=== PATIENT | male | born 1955 | race Hispanic/Latino ===

== ENCOUNTER 2018-11-27 22:45 | Inpatient (IN) | payer OTHER ==
[2018-11-28] MEDS ORDERED: Morphine 4 MG/ML VIAL SLOW IVP PRN (03:47)
[2018-11-28 03:57] VITALS: BMI 29.4
[2018-11-28] MEDS ORDERED: Ondansetron PF 4 MG/2 ML Vial IVP PRN (07:33)
[2018-11-28] MEDS ORDERED: Dextrose 50% Abboject 50 ML SYRINGE SLOW IVP PRN (07:33)
[2018-11-28] MEDS ORDERED: HumaLOG 300 UNITS/3 ML VIAL SC PRN ×2 (07:33)
[2018-11-28] MEDS ORDERED: hydrALAZINE 20 MG/ML VIAL SLOW IVP PRN (07:33)
[2018-11-28] MEDS ORDERED: Promethazine 25 MG TAB PO PRN (07:33)
[2018-11-28] MEDS ORDERED: Dextrose 5% in Water 1,000 ML IV PRN (07:33)
[2018-11-28] MEDS ORDERED: Acetaminophen 325 MG TAB PO PRN (07:33)
--- NOTE | 2018-11-28 09:36 | HP ---
CHIEF COMPLAINT: Abdominal pain. HISTORY OF PRESENT ILLNESS: Mr. Ferreira is a pleasant 63-year-old gentleman, who is currently incarcerated. He has a history of hypertension, diabetes, and elevated cholesterol. He says that about 2 to 3 months ago, he started noticing some abdominal pain primarily on his right side, and he says that he started noticing that he would get some bloating every time he ate. He also says that this began to progress to the point where he was vomiting and getting nauseated after most everything he ate. He started to get extremely weak and says that in the last few months, he has lost over 30 pounds. He denies having any hematemesis or hematochezia. He does admit that because he has been so weak, he has been short of breath primarily when he moves around and does things, but denies any chest pain and denies shortness of breath at rest. He also noted some edema in his ankles. As a result of this, he was sent to the emergency room, where a CT scan of the abdomen was obtained and it revealed a mass in the liver as well as an elevation of his D-dimer and he is being admitted for further evaluation. The patient denies any fevers or chills, or any other symptoms. REVIEW OF SYSTEMS: CONSTITUTIONAL: The patient denies any fevers, no chills or night sweats, but has had a 30-pound weight loss. HEENT: He denies any headaches. No dizziness. No visual changes. No sore throat, rhinorrhea, or neck pain. No adenopathy. PULMONARY: No hemoptysis. No cough. No wheezing. CARDIOVASCULAR: He denies any chest pain. No shortness of breath. No PND. No orthopnea. GASTROINTESTINAL: As per history of present illness. GENITOURINARY: No urinary frequency or hematuria. No hesitancy. NEUROLOGIC: No focal weakness or numbness. No seizures. MUSCULOSKELETAL: No muscle pains, weakness, or joint pains. PSYCHIATRIC: No symptoms of anxiety or depression. SKIN AND INTEGUMENT: No skin changes. No rash. PAST MEDICAL HISTORY: Significant for hypertension, diabetes mellitus, hypercholesterolemia, hypothyroidism, prostate cancer, and kidney cancer. PAST SURGICAL HISTORY: He has had right ankle surgery. He says he had some type of stomach surgery, an ablation on his kidney prior to being incarcerated and he did undergo 2 months of radiation for his prostate cancer. ALLERGIES: NO KNOWN DRUG ALLERGIES. SOCIAL HISTORY: He is , has 3 children. He admits to smoking a pack a day for 40 years and also history of heavy drinking for 30 years, but has not drank or smoke in the 5 years. FAMILY HISTORY: Negative for any heritable diseases. MEDICATIONS: Include 1. Terazosin 5 mg at bedtime. 2. Metformin 1000 mg twice daily. 3. Lisinopril 20 mg daily. 4. Levothyroxine 0.1 mg daily. 5. Phenergan p.r.n. 6. Simvastatin, he is unsure of the dose. 7. Prilosec 20 mg twice daily. 8. Tums p.r.n. PHYSICAL EXAMINATION: GENERAL: He is alert and oriented. He appears to be in no acute distress. VITAL SIGNS: Blood pressure is 121/58, heart rate 96, respiratory rate of 18, temperature is 98.4, and O2 saturations 96% on room air. HEENT: Pupils are equal, round, and reactive to light. He is normocephalic and atraumatic. He does have some conjunctival injection, but no maura icterus. Throat, there is no erythema, no exudates. NECK: No adenopathy. No bruits. LUNGS: Clear to auscultation. There is no wheezing, no rales, no rhonchi. CARDIOVASCULAR: He has a normal S1, S2. I do not appreciate an S3 or S4. No murmurs, clicks, or rubs. ABDOMEN: Obese, it is soft. He does have some mild mid abdominal tenderness and also into the right upper quadrant. I am not able to palpate a mass and the liver span percussed to be normal. There is no fluid wave or any flank dullness. EXTREMITIES: There is no clubbing, no cyanosis, no edema. There are no joint effusions. Good dorsalis pedis pulses. NEUROLOGIC: The patient is currently shackled, but grossly the neurological exam is negative. SKIN AND INTEGUMENT: No skin changes. No rash. LABORATORY DATA: The white blood cell count is 8.9, hemoglobin is 10.5, hematocrit is 34.2, and platelet count is 126. Sodium is 139, potassium is 5.2, chloride is 102, CO2 is 26, BUN of 15, creatinine is 0.96, glucose is 190. Urinalysis was essentially negative. Urine drug screen was negative. Also, the patient's D-dimer was 2.17. IMAGING STUDIES: He had a CT scan of the abdomen and pelvis. I do not have the official reading on this, but it was reported that there was a large metastatic mass in the liver. There are no pleural effusions. No evidence of ascites or any visible lung masses. ASSESSMENT: This is a 63-year-old gentleman, who presents with abdominal discomfort, nausea and vomiting as well as significant weight loss and radiographic evidence of a metastatic lesion in the liver. He will be admitted. We will consult Gastroenterology. In the meantime, we will order an alpha-fetoprotein and CEA. There was no evidence of significant ascites, and we will defer to GI regarding whether or not to order an abdominal ultrasound. 1. Elevated D-dimer and dyspnea. We will get a CT angio of the chest tomorrow so that it will be 24 hours since his last contrast study. 2. Diabetes mellitus. We will hold off on metformin; however, we will treat him with the sliding scale and potentially with a long-acting insulin if needed. 3. Hypertension. We will need to reconcile and restart his home medications as well as p.r.n. medicines. 4. Hypothyroidism. We will restart levothyroxine. He appears to be clinically euthyroid. 5. He will be placed on Deep venous thrombosis and gastrointestinal prophylaxis. Job ID: [id number]
[2018-11-28] MEDS: Lisinopril 20 MG TAB PO SCH (09:47)
[2018-11-28] MEDS: Levothyroxine Sodium 100 MCG TAB PO SCH (09:48)
[2018-11-28] MEDS: Atorvastatin Calcium 10 MG TAB PO SCH (09:48)
[2018-11-28] MEDS: HYDROcodone/Acetaminophen 5/325 mg Tablet PO PRN ×3 (09:48→20:18)
[2018-11-28] MEDS: Simethicone Chewable 80 MG TAB PO SCH ×3 (09:48→20:18)
[2018-11-28] MEDS: Enoxaparin Sodium 40 MG/0.4 ML SYRINGE SC SCH (09:49)
--- NOTE | 2018-11-28 14:49 | CON ---
DATE OF CONSULTATION: 11/28/2018 REQUESTING PHYSICIAN: Sawyer Rivers MD REASON FOR CONSULTATION: Metastatic liver disease. HISTORY OF PRESENT ILLNESS: Franklin Ferreira is a 63-year-old man, currently incarcerated, who was admitted to the hospital early this morning in transfer from [facility]. He has a history significant for some kind of renal malignancy or lesion, which was ablated elsewhere several years ago. He is unsure of the exact diagnosis of this. He also has a history of prostate cancer and underwent several weeks of radiation therapy in 2018, at [facility]. He says that this went well and that recent PSAs have all been satisfactory, and he has had close followup with Urology since then. He has no prior history of gastrointestinal illness or malignancy or any family history of GI malignancy. He has never undergone EGD that he is aware of. He does recall having undergone a colonoscopy probably 12 to 15 years ago elsewhere. A couple of months ago, he noticed the gradual onset of some right-sided abdominal pain and postprandial bloating. This progressed in frequency and intensity. He started having postprandial nausea with rare vomiting. He is having more frequent, but smaller bowel movements and a lot more gas from above and below. He has lost about 30 pounds over the past few months. He started having some dyspnea on exertion and mild ankle swelling. Upon presentation the other night, he had a CT of the abdomen and pelvis, and this unfortunately shows innumerable liver lesions, mostly measuring 1 to 3 cm, but one area is a conglomeration of lesions measuring up to 10 cm in size. There is a 2.5 cm left renal lesion, which is indeterminate. He has diverticulosis and stool in the colon. Otherwise, normal pancreas, spleen, stomach, adrenals, small bowel, and bladder. CEA is mildly elevated to 5.26, and AFP is pending. He is currently feeling okay. He had breakfast and lunch today and did fine with this. Oncology consultation is also pending. REVIEW OF SYSTEMS: Full review of systems including constitutional, head, eyes, ears, nose, throat, GI, , cardiovascular, respiratory, musculoskeletal, and neurologic systems is negative except as noted in the HPI. PAST MEDICAL HISTORY: Hypertension; hyperlipidemia; diabetes; hypothyroidism; kidney lesion, status post ablation several years ago; and prostate cancer, status post radiation in 2018, at [facility]. FAMILY HISTORY: His father had some kind of liver disease. No gastrointestinal malignancy. SOCIAL HISTORY: The patient used to smoke and drink heavily, but none for the past 5 to 6 years since he was incarcerated. ALLERGIES: NO KNOWN DRUG ALLERGIES. OUTPATIENT MEDICATIONS: 1. Terazosin. 2. Metformin. 3. Lisinopril. 4. Levothyroxine. 5. Phenergan. 6. Zocor. 7. Prilosec 20 mg b.i.d. PHYSICAL EXAMINATION: VITAL SIGNS: Temperature 99.1, pulse 116, blood pressure 124/61, 95% oxygen saturation on room air. GENERAL: A 63-year-old man, sitting up in bed comfortably, in no distress. SKIN: No jaundice. No rashes were palpable. He has multiple tattoos. HEENT: Eyes; no scleral icterus. Extraocular movements are intact. ENT; mucous membranes are moist. No oral lesions. LYMPH: No submandibular or supraclavicular lymphadenopathy. THYROID: Nontender to palpation. HEART: Regular rate and rhythm. LUNGS: Clear to auscultation bilaterally. ABDOMEN: Bowel sounds present. Soft. Nontender to palpation. EXTREMITIES: No peripheral edema. VESSELS: Radial pulses 2+ bilaterally. NEUROLOGIC: Cranial nerves 2 through 12 intact bilaterally. No focal deficits. LABORATORY STUDIES: WBC 8.9, hemoglobin 10.5, platelets 126, MCV 87.5. Sodium 139, potassium 5.2, BUN 15, creatinine 0.96, glucose 190. Troponin, negative. Total bilirubin 0.5, alkaline phosphatase 351, AST 70, ALT 27, albumin 2.9, lipase 7. BNP 149.7. Urinalysis, negative. Urine drug screen, negative. D-dimer 2.17. AFP is pending. CEA is elevated to 5.26. Troponin, negative. IMAGING STUDIES: Chest x-ray showed no acute processes. CT of the abdomen and pelvis demonstrated innumerable liver lesions measuring up to 10 cm. There are diverticulosis and stool in the colon. There is a 2.5 cm left renal lesion. Otherwise, normal-appearing pancreas, spleen, stomach, adrenals, small bowel, and bladder. ASSESSMENT AND PLAN: 1. Metastatic liver disease. 2. Elevated CEA. 3. History of prostate cancer, status post radiation in 2018. 4. History of renal lesion, status post treatment several years ago. I discussed with the patient today that his imaging is very concerning for metastatic liver disease. He does have some elevation in CEA as well as a prior history of other malignancies. Gastrointestinal primary is certainly on the differential. We can plan for EGD and colonoscopy this admission for further investigation. We will give him a clear liquid diet starting tomorrow. Plan for bowel preparation tomorrow evening and EGD and colonoscopy the following day. I understand he is going to be getting CT chest imaging in the meantime. Follow up Oncology recommendations. It may also be worthwhile to consider getting a formal Urology consultation. Thank you for the consultation. Please call anytime with questions or concerns. Job ID: [id number]
[2018-11-28] MEDS: Terazosin HCl 5 MG CAP PO SCH (20:18)
[2018-11-28] MEDS ORDERED: Prevnar 13-Val Conj/PF 0.5 ML SYRINGE IM ONE (21:00)
[2018-11-28] MEDS ORDERED: FLU VACC QS2019-20(6MOS UP)/PF 60 MCG/0.5 ML SYRINGE IM ONE (21:00)
[2018-11-29 05:30] LABS: #Eosinphils 0.1 thou/uL (0.0-0.7); #Lymphocytes 0.6 thou/uL (1.20-3.40); #Monocytes 0.9 thou/uL (0.11-0.59); #Neutrophils 6.8 thou/uL (1.40-6.50); %Eosinophils 1.1 % (0.0-10.0); %Lymphocytes 6.8 % (21.0-51.0); %Monocytes 10.2 % (0.0-10.0); %Neutrophils 81.8 % (42.0-75.0); Hemoglobin 10.6 g/dL (14.0-18.0); Mean Corpuscular HGB CONC 32.6 g/dL (32.0-36.0); Mean Corpuscular Hemoglobin 28.8 pg (27.0-31.0); Mean Corpuscular Volume 88.4 fL (78.0-98.0); Mean Platelet Volume 11.1 fL (7.4-10.4); Platelet Count 134 thou/uL (130-400); RBC Distribution Width 13.4 % (11.5-14.5); Red Blood Cell (RBC) Count 3.68 mill/uL (4.70-6.10); White Blood Cell (WBC) Count 8.3 thou/uL (4.8-10.8)
[2018-11-29 05:51] LABS: Anion Gap 12 mmol/L (10-20); BUN (Urea Nitrogen) 14 mg/dL (8.4-25.7); Calc. Creatinine Clearance 106 mL/min (70-130); Calcium 8.4 mg/dL (7.8-10.44); Carbon Dioxide 25 mmol/L (23-31); Chloride 103 mmol/L (98-107); Estimated GFR-MDRD 90; Glucose 131 mg/dL (80-115); Potassium 4.4 mmol/L (3.5-5.1); Sodium 136 mmol/L (136-145)
[2018-11-29] MEDS: HYDROcodone/Acetaminophen 5/325 mg Tablet PO PRN ×2 (05:51→11:00)
--- NOTE | 2018-11-29 09:57 | PRG ---
DATE OF SERVICE: 11/29/2018 SUBJECTIVE: Mr. Ferreira says he is doing fine. No significant abdominal discomfort. He had a good night and slept okay. He started clear liquids this morning. He did spike a low-grade fever this morning. OBJECTIVE: VITAL SIGNS: Temperature 99.7, pulse 106, blood pressure 136/78, 96% oxygen saturation on room air. GENERAL: No acute distress. HEART: Regular rate and rhythm. LUNGS: Clear to auscultation bilaterally. ABDOMEN: Bowel sounds present. Soft. Mild tenderness to palpation in the upper abdomen. No guarding or rebound tenderness. EXTREMITIES: No peripheral edema. LABORATORY STUDIES: Hemoglobin 10.6, WBC 8.3, platelets 134. Sodium 136, potassium 4.4, BUN 14, creatinine 0.86. AST came back elevated to 348.9. CEA is 5.26. ASSESSMENT AND PLAN: 1. Innumerable liver masses, most consistent with metastatic liver disease. 2. Elevated CEA. 3. Elevated AFP. 4. History of prostate cancer, status post radiation in 2018. 5. History of renal lesion, status post treatment several years ago. I note the patient has significant AFP elevation as well. He does not have any underlying history of known liver disease. We will check viral hepatitis serologies with tomorrow morning's labs. Imaging findings still seem more consistent with metastatic disease. We will stick with the plan for diagnostic EGD and colonoscopy tomorrow after bowel preparation this evening. The patient understands and desires to proceed. Job ID: [id number]
[2018-11-29] MEDS: Enoxaparin Sodium 40 MG/0.4 ML SYRINGE SC SCH (10:59)
[2018-11-29] MEDS: Simethicone Chewable 80 MG TAB PO SCH ×3 (10:59→21:07)
[2018-11-29] MEDS: Levothyroxine Sodium 100 MCG TAB PO SCH (11:00)
[2018-11-29] MEDS: Lisinopril 20 MG TAB PO SCH (11:00)
[2018-11-29] MEDS: Atorvastatin Calcium 10 MG TAB PO SCH (11:01)
[2018-11-29 12:47] LABS: HBCM Index 0.09 S/CO (0-0.79); HBSAg Index 0.39 S/CO (0-0.99); Hep A IgM AB Non-Reactive (NonReactive); Hep A IgM S/CO 0.39 S/CO (0-0.79); Hep B Surf Ag Non-Reactive S/CO (NonReactive); Hep C IgG Ab Non-Reactive (NonReactive); Hep C Index 0.17 S/CO (0-0.79); Hepatitis B Core IgM Abs Non-Reactive (NonReactive)
--- NOTE | 2018-11-29 12:53 | CT ---
CTA Angio Chest performed with intravenous contrast enhancement with 3-D reconstructions HISTORY: Shortness of breath. History of prostate cancer and right kidney ablation. COMPARISON: None. FINDINGS: The lungs are clear of any infiltrative process. No pleural effusions. No pulmonary nodules . No significant mediastinal or hilar lymphadenopathy. The thoracic aorta is normal in caliber. There i s poor pulmonary artery opacification obtained. I see no large central embolus but peripheral emboli are not excluded. Although this is only an arterial phase examination there are innumerable low-attenuation masses with in the liver highly suspicious for metastatic disease. IMPRESSION: 1. Inadequate study for evaluation for pulmonary embolus. No large central embolus is seen at periphe ral emboli are not excluded. 2. Diffuse liver metastatic disease.
[2018-11-29] MEDS ORDERED: Iopamidol 370 76% 100 ML VIAL ONE (13:44)
--- NOTE | 2018-11-29 15:33 | PDOC.HOSPP ---
- Subjective Encounter Date: 11/29/18 Encounter Time: 13:00 Subjective: Mr. Ferreira was seen today in follow-up of liver masses. He continues to have abdominal pain, which is relieved with Morphine. He says the nausea is better however. - Objective Vital Signs & Weight: Vital Signs (12 hours) Temp Pulse Resp BP Pulse Ox 11/29/18 11:00 98 F 96 18 151/73 H 99 11/29/18 07:23 99.7 F H 106 H 18 136/78 96 Weight Admit Weight 187 lb 12.8 oz Weight 187 lb 12.8 oz I&O: 11/28/18 11/29/18 11/30/18 06:59 06:59 06:59 Intake Total 240 1870 640 Balance 240 1870 640 Result Diagrams: 11/29/18 04:44 11/29/18 04:44 Additional Labs: Accuchecks 11/29/18 11/29/18 11/28/18 10:43 05:58 20:21 POC Glucose 150 H 125 H 154 H 11/28/18 17:05 POC Glucose 179 H Hospitalist ROS - Medication Medications: Active Medications Generic Name Dose Route Start Last Admin Trade Name Freq PRN Reason Stop Dose Admin Hydrocodone Bitart/Acetaminophen 1 tab 11/28/18 07:33 11/29/18 11:00 [place] 5/325 PO 1 tab Q4H PRN Administration Moderate Pain (4-6) Atorvastatin Calcium 10 mg 11/28/18 09:00 11/29/18 11:01 Lipitor PO 10 mg DAILY LIVIA Administration Enoxaparin Sodium 40 mg 11/28/18 09:00 11/29/18 10:59 Lovenox SC 40 mg 0900 LIVIA Administration Levothyroxine Sodium 100 mcg 11/28/18 09:00 11/29/18 11:00 Synthroid PO 100 mcg DAILY LIVIA Administration Lisinopril 20 mg 11/28/18 09:00 11/29/18 11:00 Zestril PO 20 mg DAILY LIVIA Administration Pantoprazole Sodium 40 mg 11/28/18 09:00 11/29/18 10:59 Protonix PO 40 mg DAILY LIVIA Administration Sertraline HCl 150 mg 11/28/18 21:00 11/28/18 20:18 Zoloft PO 150 mg QPM LIVIA Administration Simethicone 80 mg 11/28/18 09:00 10/07/19 10:59 Mylicon Chewable PO 80 mg TID LIVIA Administration Terazosin HCl 5 mg 11/28/18 21:00 11/28/18 20:18 Hytrin PO 5 mg HS LIVIA Administration - Exam Eye: PERRL, anicteric sclera Heart: RRR, no murmur, no gallops, no rubs, normal peripheral pulses Respiratory: CTAB, no wheezes, no rales, no ronchi, normal chest expansion, no tachypnea, normal percussion Gastrointestinal: soft, non-distended, normal bowel sounds, no palpable masses, no hepatomegaly, no splenomegaly, no guarding, tender to palpation (mild diffuse tenderness) Extremities: no cyanosis, no clubbing, no edema Psychiatric: normal affect, normal behavior, A&O x 3 Hosp A/P (1) Abdominal pain Code(s): R10.9 - UNSPECIFIED ABDOMINAL PAIN Status: Acute (2) Liver masses Code(s): R16.0 - HEPATOMEGALY, NOT ELSEWHERE CLASSIFIED Status: Chronic (3) Hypertension Code(s): I10 - ESSENTIAL (PRIMARY) HYPERTENSION Status: Chronic (4) Diabetes mellitus type 2 in nonobese Code(s): E11.9 - TYPE 2 DIABETES MELLITUS WITHOUT COMPLICATIONS Status: Chronic - Plan * Liver masses- likely metastatic disease from unknown primary- will check a PSA , and will await the findings from the EGD and Colonoscopy * Hepatitis panel was negative * Continue symptom relief * Dyspnea- will check a CTA to rule out PE * HTN-blood pressure is stable * DM- blood glucose is stable
[2018-11-29] MEDS ORDERED: GoLYTELY 4,000 ml Bottle PO SCH (17:00)
[2018-11-29] MEDS: Terazosin HCl 5 MG CAP PO SCH (21:07)
[2018-11-30] MEDS: Enoxaparin Sodium 40 MG/0.4 ML SYRINGE SC SCH (08:06)
[2018-11-30] MEDS: Levothyroxine Sodium 100 MCG TAB PO SCH (09:32)
[2018-11-30] MEDS: Atorvastatin Calcium 10 MG TAB PO SCH (09:32)
[2018-11-30] MEDS: Lisinopril 20 MG TAB PO SCH (09:33)
[2018-11-30] MEDS: Simethicone Chewable 80 MG TAB PO SCH ×3 (09:33→21:14)
[2018-11-30] MEDS: HYDROcodone/Acetaminophen 5/325 mg Tablet PO PRN ×2 (09:40→21:14)
[2018-11-30] MEDS ORDERED: PROPOFOL 200 MG/20 ML VIAL ONE (11:53)
--- NOTE | 2018-11-30 12:54 | PQF ---
ADELAIDE HILARIO TONI MD [phone] [facility] [id number] CLINICAL DOCUMENTATION IMPROVEMENT CLARIFICATION FORM: ICD-10 Updated PLEASE DO AN ADDENDUM TO THE PROGRESS NOTE WITH ANY DOCUMENTATION UPDATES OR ADDITIONS AND CARRY THROUGH TO DC SUMMARY. THANK YOU. Date: 11/30/2018 ATTN: DR. Osmany DEWEY Please exercise your independent, professional judgment in responding to the clarification form. Clinical indicators are provided on the bottom of this form for your review. Please check appropriate box(s): [X ] Protein Calorie Malnutrition: [ X ] Mild [ ] Moderate [ ] Severe [ ] Cachexia [ ] Other diagnosis [ ] Unable to determine In addition, please specify: Present on Admission (POA): [ X ] Yes [ ] No [ ] Unable to determine CLINICAL INDICATORS - SIGNS / SYMPTOMS / LABS 11/28 H&P (ZULEIMA) PRESENTS WITH ABDOMINAL DISCOMFORT, NAUSEA, VOMITING, WELL SIGNIFICANT WEIGHT LOSS AND RADIOGRAPHIC EVIDENCE OF A METASTATIC LESION IN THE LIVER. 11/29 DIETARY CONSULT: MALNUTRITION : EVIDENCED BY METASTATIC LIVER CANCER, 10.6 % WEIGHT LOSS IN 2-3 MONTHS, PATINET REPORT OF LIMITED PO INTAKE X 2-3 MONTHS, MEETING < 75% OF ESTIMATED NEEDS X 2-3 MONTHS SUGGESTIVE OF SEVERE MALNUTRITION IN THE CONTEXT OF CHRONIC ILLNESS. RISK: NAUSEA, VOMITING,SIGNIFICANT WEIGHT LOSS, LARGE METASTATIC MASS IN LIVER ( ZULEIMA/ H&P) 11/28 TREATMENTS: GI CONSULT (11/28) DIETARY CONSULT (11/29) -RD RECOMMENDS GLUCERNA SHAKES TID -ANTIEMETICS ORDERED PRN ( PHENERGAN/ZOFRAN) Moderate Malnutrition (in acute illness) Energy Intake: <75% of estimated energy requirement for > 7 days Weight Loss: 1-2%/1 week; 5%/ 1 month; 7.5%/3 months Other: mild body fat loss; mild muscle mass loss; mild fluid accumulation; Severe Malnutrition (in acute illness) Energy Intake: < 50% of estimated energy requirement for > 5 days Weight Loss: >1-2%/1 week; >5%/1 month; >7.5%/3 months Other: moderate body fat loss; moderate muscle mass loss; moderate- severe fluid accumulation; measurably reduced sinker winder strength Moderate Malnutrition (in chronic illness) Energy Intake: <75% of estimated energy requirement for >1 month Weight Loss: 5%/1 month; 7.5%/3 months; 10%/6 months; 20%/1 year Other: mild body fat loss; mild muscle mass loss; mild fluid accumulation Severe Malnutrition (in chronic illness) Energy Intake: <75% of estimated energy requirement for >1 month Weight Loss: >5%/1 month; >7.5%/3 months; >10%/6 months; >20%/1 year Other: severe body fat loss; severe muscle mass loss; severe fluid accumulation ; measurably reduced sinker winder strength THANK YOU! MALLIKA (This form is maintained as a part of the permanent medical record) 2014 [email or web address] All Rights Reserved BELA [email or web address] [phone] MTDD
--- NOTE | 2018-11-30 13:26 | OP ---
DATE OF PROCEDURE: 11/30/2018 PROCEDURE PERFORMED: Esophagogastroduodenoscopy and colonoscopy with snare polypectomy. PREOPERATIVE DIAGNOSIS: Metastatic disease to the liver of unknown origin and anemia. DESCRIPTION OF PROCEDURE: Informed consent was obtained from the patient. He was sedated with total intravenous anesthesia. The bite block was placed and the endoscope was advanced easily to the second portion of the duodenum and retroflexion was performed in the stomach. The esophagus was normal. The GE junction was normal. The stomach was normal including retroflexed views. The pylorus and first and second portions of the duodenum were normal. The patient was turned around. Rectal exam was performed and was normal. The colonoscope was advanced to the cecum, where the ileocecal valve and appendiceal orifice were clearly identified. The preparation quality was good. A 4 mm polyp was removed by cold snare polypectomy from the proximal ascending colon. A 6 mm polyp was removed from the transverse colon by snare cautery polypectomy. There was moderate diverticulosis throughout the transverse, descending, and sigmoid colon. 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 Retroflexed views in the rectum were otherwise unremarkable. IMPRESSION: 1. Normal esophagogastroduodenoscopy. 2. 4 mm ascending colon polyp. 3. 6 mm transverse colon polyp. 4. Diverticulosis throughout the transverse, descending, and sigmoid colon. 5. Moderate radiation proctitis. 6. No primary malignancy was identified by this exam. RECOMMENDATIONS: 1. Await histopathology. 2. Next step will be biopsy of the liver lesion. 3. Await oncology recommendations. 4. Dr. Wylie should be back tomorrow. Job ID: [id number]
--- NOTE | 2018-11-30 17:29 | PDOC.HOSPP ---
- Subjective Encounter Date: 11/30/18 Encounter Time: 14:00 Subjective: Mr. Ferreira was seen today in follow-up of metastatic disease to the liver. He does not have any new complaints. He continues to have some mild abdominal discomfort. - Objective Vital Signs & Weight: Vital Signs (12 hours) Temp Pulse Resp BP Pulse Ox 11/30/18 15:19 98.1 F 91 16 107/55 L 96 11/30/18 12:58 97.7 F 79 16 109/67 98 11/30/18 08:04 97.9 F 89 16 105/47 L 96 11/30/18 08:00 96 Weight Admit Weight 187 lb 12.8 oz Weight 187 lb 12.8 oz I&O: 11/29/18 11/30/18 12/01/18 06:59 06:59 06:59 Intake Total 1870 1710 Balance 1870 1710 Result Diagrams: 11/29/18 04:44 11/29/18 04:44 Additional Labs: Accuchecks 11/30/18 11/30/18 11/30/18 16:52 13:11 05:22 POC Glucose 147 H 90 107 11/29/18 20:03 POC Glucose 176 H Hospitalist ROS - Medication Medications: Active Medications Generic Name Dose Route Start Last Admin Trade Name Freq PRN Reason Stop Dose Admin Hydrocodone Bitart/Acetaminophen 1 tab 11/28/18 07:33 11/30/18 09:40 [place] 5/325 PO 1 tab Q4H PRN Administration Moderate Pain (4-6) Atorvastatin Calcium 10 mg 11/28/18 09:00 11/30/18 09:32 Lipitor PO 10 mg DAILY LIVIA Administration Levothyroxine Sodium 100 mcg 11/28/18 09:00 11/30/18 09:32 Synthroid PO 100 mcg DAILY LIVIA Administration Lisinopril 20 mg 11/28/18 09:00 11/30/18 09:33 Zestril PO Not Given DAILY LIVIA Pantoprazole Sodium 40 mg 11/28/18 09:00 11/30/18 09:33 Protonix PO 40 mg DAILY LIVIA Administration Sertraline HCl 150 mg 11/28/18 21:00 11/29/18 21:07 Zoloft PO 150 mg QPM LIVIA Administration Simethicone 80 mg 11/28/18 09:00 11/30/18 15:12 Mylicon Chewable PO 80 mg TID LIVIA Administration Sodium Chloride 10 ml 11/29/18 21:00 11/30/18 09:33 Flush - Normal Saline IVF 10 ml Q12HR LIVIA Administration Terazosin HCl 5 mg 11/28/18 21:00 11/29/18 21:07 Hytrin PO 5 mg HS LIVIA Administration - Exam Eye: PERRL, anicteric sclera Heart: RRR, no murmur, no gallops, no rubs, normal peripheral pulses Respiratory: CTAB, no wheezes, no rales, no ronchi, normal chest expansion, no tachypnea, normal percussion Gastrointestinal: soft, non-distended, normal bowel sounds, tender to palpation (+ diffuse tenderness no rebound or guarding) Extremities: no cyanosis, no clubbing, no edema Hosp A/P (1) Abdominal pain Code(s): R10.9 - UNSPECIFIED ABDOMINAL PAIN Status: Acute (2) Liver masses Code(s): R16.0 - HEPATOMEGALY, NOT ELSEWHERE CLASSIFIED Status: Chronic (3) Hypertension Code(s): I10 - ESSENTIAL (PRIMARY) HYPERTENSION Status: Chronic (4) Diabetes mellitus type 2 in nonobese Code(s): E11.9 - TYPE 2 DIABETES MELLITUS WITHOUT COMPLICATIONS Status: Chronic - Plan * Liver masses- likely metastatic disease from unknown primary- EGD and Colonoscopy findings were noted * Plan to to pursue CT guided biopsy of the liver * Continue symptom relief * Dyspnea- CTA was negative for any large central embolus * HTN-blood pressure is stable * DM- blood glucose is stable
[2018-11-30] MEDS: Terazosin HCl 5 MG CAP PO SCH (21:14)
[2018-12-01 07:37] LABS: INR-International Normal Ratio 1.1; Prothrombin Time 14.1 SEC (12.0-14.7)
[2018-12-01 07:38] LABS: PTT 41.8 SEC (22.9-36.1)
[2018-12-01] MEDS: Lisinopril 20 MG TAB PO SCH (08:49)
[2018-12-01] MEDS: Simethicone Chewable 80 MG TAB PO SCH ×3 (08:49→20:37)
[2018-12-01] MEDS: Levothyroxine Sodium 100 MCG TAB PO SCH (08:50)
[2018-12-01] MEDS: Atorvastatin Calcium 10 MG TAB PO SCH (08:50)
[2018-12-01] MEDS ORDERED: Sodium Bicarbonate 2.5 MEQ/5 ML VIAL ONE (09:55)
[2018-12-01] MEDS ORDERED: Midazolam HCl 2 mg/2 ml Vial ONE (09:56)
[2018-12-01] MEDS ORDERED: Fentanyl 100 MCG/2 ML VIAL ONE (09:56)
--- NOTE | 2018-12-01 11:14 | CT ---
CT Liver Perc Biopsy CLINICAL HISTORY: Liver masses, indeterminate etiology. PROCEDURE: Informed consent was obtained and the patient was escorted to the procedural suite, placed in supine position. The patient's skin was prepped and draped in a standard sterile fashion and topical anesthesia with buffered 1% lidocaine was performed. After a small skin incision was made, an 18-gaug e needle were advanced to the leading edge of the left hepatic lobe lesion of interest. After adequate placement was confirmed with CT fluoroscopic imaging, 3 subsequent core specimens were obta ined via percutaneous biopsy. These were confirmed with CT fluoroscopic imaging and the specimens were submitted to the pathologist for adequacy. Specimens were deemed adequate for interpretation. Th erefore, all devices were then removed from the patient. No unexpected procedural complications were present. The patient was monitored in radiology holding i n stable condition prior to discharge with family member. IMPRESSION: Technically successful percutaneous hepatic biopsy. Pathology results are pending.
--- NOTE | 2018-12-01 17:16 | PRG ---
DATE OF SERVICE: 12/01/2018 SUBJECTIVE: Mr. Ferreira is doing fine. He has been asymptomatic since EGD and colonoscopy yesterday. He underwent CT-guided liver mass biopsy today and this went well. He is not having any pain. He is tolerating his diet. Pathology is still pending. OBJECTIVE: VITAL SIGNS: Temperature 98.1, pulse 88, blood pressure 104/62, and 97% oxygen saturation on room air. GENERAL: In no acute distress. HEART: Regular rate and rhythm. LUNGS: Clear to auscultation bilaterally. ABDOMEN: Soft, nontender to palpation. EXTREMITIES: No peripheral edema. LABORATORY STUDIES: INR is 1.1. Glucose 141. Viral hepatitis serology panel is all negative. Recall AFP is elevated to 348.9. CEA is mildly elevated to 5.26. PSA is 0.88. ASSESSMENT/PLAN: 1. Metastatic liver disease. 2. Elevated AFP. 3. Elevated CEA. The patient's upper and lower endoscopy were unrevealing, negative for any primary malignancy. He had a couple of small colon adenomas, which were completely removed. Awaiting histopathology on liver mass biopsy. Once this is back, we would recommend oncology consultation if malignancy is confirmed. Please call back anytime if GI can be of further assistance. We will follow up the biopsy results with you. Job ID: [id number]
--- NOTE | 2018-12-01 17:56 | PDOC.HOSPP ---
- Subjective Encounter Date: 12/01/18 Encounter Time: 14:00 Subjective: Mr. Ferreira was seen today in follow-up of liver masses. He is back from CT- guided liver biopsy. He does not have any complaints. - Objective Vital Signs & Weight: Vital Signs (12 hours) Temp Pulse Resp BP BP BP Pulse Ox 12/01/18 15:56 98.1 F 88 16 104/62 97 12/01/18 11:00 98.3 F 97 16 105/58 L 94 L 12/01/18 08:49 117/61 12/01/18 07:40 98.1 F 90 18 117/61 94 L Weight Admit Weight 187 lb 12.8 oz Weight 187 lb 12.8 oz I&O: 11/30/18 12/01/18 12/02/18 06:59 06:59 06:59 Intake Total 1710 880 Balance 1710 880 Result Diagrams: 11/29/18 04:44 11/29/18 04:44 Additional Labs: Accuchecks 12/01/18 12/01/18 11/30/18 11:35 06:13 20:39 POC Glucose 141 H 100 193 H Hospitalist ROS - Medication Medications: Active Medications Generic Name Dose Route Start Last Admin Trade Name Freq PRN Reason Stop Dose Admin Hydrocodone Bitart/Acetaminophen 1 tab 11/28/18 07:33 11/30/18 21:14 [place] 5/325 PO 1 tab Q4H PRN Administration Moderate Pain (4-6) Atorvastatin Calcium 10 mg 11/28/18 09:00 12/01/18 08:50 Lipitor PO 10 mg DAILY LIVIA Administration Levothyroxine Sodium 100 mcg 11/28/18 09:00 12/01/18 08:50 Synthroid PO 100 mcg DAILY LIVIA Administration Lisinopril 20 mg 11/28/18 09:00 12/01/18 08:49 Zestril PO 20 mg DAILY LIVIA Administration Pantoprazole Sodium 40 mg 11/28/18 09:00 12/01/18 08:50 Protonix PO 40 mg DAILY LIVIA Administration Sertraline HCl 150 mg 11/28/18 21:00 11/30/18 21:13 Zoloft PO 150 mg QPM LIVIA Administration Simethicone 80 mg 11/28/18 09:00 12/01/18 16:01 Mylicon Chewable PO 80 mg TID LIVIA Administration Sodium Chloride 10 ml 11/29/18 21:00 12/01/18 08:50 Flush - Normal Saline IVF 10 ml Q12HR LIVIA Administration Terazosin HCl 5 mg 11/28/18 21:00 11/30/18 21:14 Hytrin PO 5 mg HS LIVIA Administration - Exam Eye: PERRL Heart: RRR, no murmur, no gallops, no rubs, normal peripheral pulses Respiratory: CTAB, no wheezes, no rales, no ronchi, normal chest expansion, no tachypnea, normal percussion Gastrointestinal: soft, non-distended, normal bowel sounds, no palpable masses, tender to palpation (+mild right upper quadrant tenderness no reound or guarding ) Extremities: no cyanosis, no clubbing, no edema Skin: normal turgor Hosp A/P (1) Abdominal pain Code(s): R10.9 - UNSPECIFIED ABDOMINAL PAIN Status: Acute (2) Liver masses Code(s): R16.0 - HEPATOMEGALY, NOT ELSEWHERE CLASSIFIED Status: Chronic (3) Hypertension Code(s): I10 - ESSENTIAL (PRIMARY) HYPERTENSION Status: Chronic (4) Diabetes mellitus type 2 in nonobese Code(s): E11.9 - TYPE 2 DIABETES MELLITUS WITHOUT COMPLICATIONS Status: Chronic - Plan * Liver masses- likely metastatic disease from unknown primary- Patient is back from CT-guided biopsy- await pathology * Continue symptom relief * HTN-blood pressure is stable * DM- blood glucose is stable
[2018-12-01] MEDS: Terazosin HCl 5 MG CAP PO SCH (20:36)
[2018-12-01] MEDS: HYDROcodone/Acetaminophen 5/325 mg Tablet PO PRN (20:37)
[2018-12-02] MEDS: Enoxaparin Sodium 40 MG/0.4 ML SYRINGE SC SCH (09:28)
[2018-12-02] MEDS: Levothyroxine Sodium 100 MCG TAB PO SCH (09:28)
[2018-12-02] MEDS: Lisinopril 20 MG TAB PO SCH (09:28)
[2018-12-02] MEDS: Simethicone Chewable 80 MG TAB PO SCH ×3 (09:28→21:13)
[2018-12-02] MEDS: Atorvastatin Calcium 10 MG TAB PO SCH (09:29)
[2018-12-02 09:30] LABS: #Eosinphils 0.1 thou/uL (0.0-0.7); #Lymphocytes 0.8 thou/uL (1.20-3.40); #Monocytes 0.9 thou/uL (0.11-0.59); #Neutrophils 6.4 thou/uL (1.40-6.50); %Basophils 0.1 % (0.0-1.0); %Eosinophils 0.9 % (0.0-10.0); %Lymphocytes 9.9 % (21.0-51.0); %Monocytes 11.1 % (0.0-10.0); Hemoglobin 10.6 g/dL (14.0-18.0); Mean Corpuscular HGB CONC 32.6 g/dL (32.0-36.0); Mean Corpuscular Hemoglobin 28.8 pg (27.0-31.0); Mean Corpuscular Volume 88.4 fL (78.0-98.0); Mean Platelet Volume 10.8 fL (7.4-10.4); Platelet Count 125 thou/uL (130-400); RBC Distribution Width 13.6 % (11.5-14.5); Red Blood Cell (RBC) Count 3.69 mill/uL (4.70-6.10); White Blood Cell (WBC) Count 8.2 thou/uL (4.8-10.8)
[2018-12-02] MEDS: HYDROcodone/Acetaminophen 5/325 mg Tablet PO PRN ×3 (09:32→21:13)
[2018-12-02 09:52] LABS: Anion Gap 11 mmol/L (10-20); BUN (Urea Nitrogen) 14 mg/dL (8.4-25.7); Calc. Creatinine Clearance 88 mL/min (70-130); Calcium 8.3 mg/dL (7.8-10.44); Carbon Dioxide 26 mmol/L (23-31); Chloride 103 mmol/L (98-107); Estimated GFR-MDRD 73; Glucose 236 mg/dL (80-115); Potassium 4.4 mmol/L (3.5-5.1); Sodium 136 mmol/L (136-145)
--- NOTE | 2018-12-02 14:54 | PDOC.HOSPP ---
- Subjective Encounter Date: 12/02/18 Encounter Time: 11:35 Subjective: Mr. Ferreira was seen today in follow-up of liver mass. He continues to have some mild right sided abdominal discomfort. He is eating well. No new complaints. - Objective Vital Signs & Weight: Vital Signs (12 hours) Temp Pulse Resp BP BP Pulse Ox 12/02/18 11:39 98.2 F 92 14 108/58 L 97 12/02/18 09:28 117/61 12/02/18 08:00 98.4 F 89 16 112/65 97 12/02/18 04:00 98.3 F 89 18 105/55 L 97 Weight Admit Weight 187 lb 12.8 oz Weight 187 lb 12.8 oz I&O: 12/01/18 12/02/18 12/03/18 06:59 06:59 06:59 Intake Total 880 480 Balance 880 480 Result Diagrams: 12/02/18 09:24 12/02/18 09:24 Additional Labs: Accuchecks 12/02/18 12/02/18 12/01/18 11:19 05:45 20:41 POC Glucose 140 H 101 189 H 12/01/18 16:54 POC Glucose 138 H Hospitalist ROS - Medication Medications: Active Medications Generic Name Dose Route Start Last Admin Trade Name Freq PRN Reason Stop Dose Admin Hydrocodone Bitart/Acetaminophen 1 tab 11/28/18 07:33 12/02/18 09:32 [place] 5/325 PO 1 tab Q4H PRN Administration Moderate Pain (4-6) Atorvastatin Calcium 10 mg 11/28/18 09:00 12/02/18 09:29 Lipitor PO 10 mg DAILY LIVIA Administration Enoxaparin Sodium 40 mg 12/02/18 09:00 12/02/18 09:28 Lovenox SC 40 mg 0900 LIVIA Administration Levothyroxine Sodium 100 mcg 11/28/18 09:00 12/02/18 09:28 Synthroid PO 100 mcg DAILY LIVIA Administration Lisinopril 20 mg 11/28/18 09:00 12/02/18 09:28 Zestril PO 20 mg DAILY LVIIA Administration Pantoprazole Sodium 40 mg 11/28/18 09:00 12/02/18 09:28 Protonix PO 40 mg DAILY LIVIA Administration Sertraline HCl 150 mg 11/28/18 21:00 12/01/18 20:36 Zoloft PO 150 mg QPM LIVIA Administration Simethicone 80 mg 11/28/18 09:00 12/02/18 14:18 Mylicon Chewable PO 80 mg TID LIVIA Administration Sodium Chloride 10 ml 11/29/18 21:00 12/02/18 09:29 Flush - Normal Saline IVF 10 ml Q12HR LIVIA Administration Sodium Chloride 10 ml 11/29/18 09:06 12/02/18 09:28 Flush - Normal Saline IVF 10 ml PRN PRN Administration Saline Flush Terazosin HCl 5 mg 11/28/18 21:00 12/01/18 20:36 Hytrin PO 5 mg HS LIVIA Administration - Exam Eye: PERRL, anicteric sclera Heart: RRR, no murmur, no gallops, no rubs, normal peripheral pulses Respiratory: CTAB, no wheezes, no rales, no ronchi, normal chest expansion, no tachypnea, normal percussion Gastrointestinal: soft, non-distended, normal bowel sounds, no palpable masses, no hepatomegaly, no splenomegaly, no bruit, tender to palpation (Mild right sided tenderness, no rebound or guarding) Extremities: no cyanosis, no clubbing, no edema Hosp A/P (1) Abdominal pain Code(s): R10.9 - UNSPECIFIED ABDOMINAL PAIN Status: Acute (2) Liver masses Code(s): R16.0 - HEPATOMEGALY, NOT ELSEWHERE CLASSIFIED Status: Chronic (3) Hypertension Code(s): I10 - ESSENTIAL (PRIMARY) HYPERTENSION Status: Chronic (4) Diabetes mellitus type 2 in nonobese Code(s): E11.9 - TYPE 2 DIABETES MELLITUS WITHOUT COMPLICATIONS Status: Chronic - Plan * No new recommendations * Liver masses- likely metastatic disease from unknown primary- Patient is back from CT-guided biopsy- await pathology * Continue symptom relief * HTN-blood pressure is stable * DM- blood glucose is stable
[2018-12-02] MEDS: Terazosin HCl 5 MG CAP PO SCH (21:13)
[2018-12-03] MEDS: Atorvastatin Calcium 10 MG TAB PO SCH (08:33)
[2018-12-03] MEDS: Simethicone Chewable 80 MG TAB PO SCH ×3 (08:33→21:09)
[2018-12-03] MEDS: HYDROcodone/Acetaminophen 5/325 mg Tablet PO PRN ×2 (08:33→21:08)
[2018-12-03] MEDS: Levothyroxine Sodium 100 MCG TAB PO SCH (08:33)
[2018-12-03] MEDS: Enoxaparin Sodium 40 MG/0.4 ML SYRINGE SC SCH (08:33)
[2018-12-03] MEDS: Lisinopril 20 MG TAB PO SCH (08:33)
--- NOTE | 2018-12-03 11:08 | PDOC.HOSPP ---
- Subjective Encounter Date: 12/03/18 Encounter Time: 11:05 Subjective: Mr. Ferreira was seen today in follow-up of liver masses. He does not have any new complaints. - Objective Vital Signs & Weight: Vital Signs (12 hours) Temp Pulse Resp BP BP Pulse Ox 12/03/18 08:33 117/61 12/03/18 08:00 97.8 F 69 16 177/84 H 96 12/03/18 04:00 88 97/58 L Weight Admit Weight 187 lb 12.8 oz Weight 187 lb 12.8 oz I&O: 12/02/18 12/03/18 12/04/18 06:59 06:59 06:59 Intake Total 1520 240 Output Total 1260 Balance 260 240 Result Diagrams: 12/02/18 09:24 12/02/18 09:24 Additional Labs: Accuchecks 12/03/18 12/02/18 12/02/18 05:34 20:53 16:27 POC Glucose 93 181 H 117 H 12/02/18 11:19 POC Glucose 140 H Hospitalist ROS - Medication Medications: Active Medications Generic Name Dose Route Start Last Admin Trade Name Freq PRN Reason Stop Dose Admin Hydrocodone Bitart/Acetaminophen 1 tab 11/28/18 07:33 12/03/18 08:33 [place] 5/325 PO 1 tab Q4H PRN Administration Moderate Pain (4-6) Atorvastatin Calcium 10 mg 11/28/18 09:00 12/03/18 08:33 Lipitor PO 10 mg DAILY LIVIA Administration Enoxaparin Sodium 40 mg 12/02/18 09:00 12/03/18 08:33 Lovenox SC 40 mg 09 LIVIA Administration Levothyroxine Sodium 100 mcg 11/28/18 09:00 12/03/18 08:33 Synthroid PO 100 mcg DAILY LIVIA Administration Lisinopril 20 mg 11/28/18 09:00 12/03/18 08:33 Zestril PO 20 mg DAILY LIVIA Administration Pantoprazole Sodium 40 mg 11/28/18 09:00 12/03/18 08:33 Protonix PO 40 mg DAILY LIVIA Administration Sertraline HCl 150 mg 11/28/18 21:00 12/02/18 21:13 Zoloft PO 150 mg QPM LIVIA Administration Simethicone 80 mg 11/28/18 09:00 12/03/18 08:33 Mylicon Chewable PO 80 mg TID LIVIA Administration Sodium Chloride 10 ml 11/29/18 21:00 12/03/18 08:37 Flush - Normal Saline IVF 10 ml Q12HR LIVIA Administration Sodium Chloride 10 ml 11/29/18 09:06 12/02/18 09:28 Flush - Normal Saline IVF 10 ml PRN PRN Administration Saline Flush Terazosin HCl 5 mg 11/28/18 21:00 12/02/18 21:13 Hytrin PO 5 mg HS LIVIA Administration - Exam Eye: PERRL, anicteric sclera Heart: RRR, no murmur, no gallops, no rubs, normal peripheral pulses Respiratory: CTAB, no wheezes, no rales, no ronchi, normal chest expansion, no tachypnea, normal percussion Gastrointestinal: soft, non-distended, normal bowel sounds, no palpable masses, no hepatomegaly, no splenomegaly, tender to palpation (+ mild right sided tenderness) Extremities: no cyanosis, no clubbing, no edema Psychiatric: normal affect, normal behavior, A&O x 3 Hosp A/P (1) Abdominal pain Code(s): R10.9 - UNSPECIFIED ABDOMINAL PAIN Status: Acute (2) Liver masses Code(s): R16.0 - HEPATOMEGALY, NOT ELSEWHERE CLASSIFIED Status: Chronic (3) Hypertension Code(s): I10 - ESSENTIAL (PRIMARY) HYPERTENSION Status: Chronic (4) Diabetes mellitus type 2 in nonobese Code(s): E11.9 - TYPE 2 DIABETES MELLITUS WITHOUT COMPLICATIONS Status: Chronic - Plan * No new recommendations * Liver masses- likely metastatic disease from unknown primary- Patient is back from CT-guided biopsy- await pathology * Continue symptom relief * HTN-blood pressure is stable * DM- blood glucose is stable * Once the pathology results are available, will need to contact [facility] and see if he is appropriate for transfer there, or placement into the [facility], with Outpatient treatment
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
[2018-12-03] MEDS: Terazosin HCl 5 MG CAP PO SCH (21:09)
[2018-12-04] MEDS: HYDROcodone/Acetaminophen 5/325 mg Tablet PO PRN ×4 (06:05→22:42)
[2018-12-04] MEDS: Levothyroxine Sodium 100 MCG TAB PO SCH (08:25)
[2018-12-04] MEDS: Enoxaparin Sodium 40 MG/0.4 ML SYRINGE SC SCH (08:25)
[2018-12-04] MEDS: Simethicone Chewable 80 MG TAB PO SCH ×3 (08:26→23:07)
[2018-12-04] MEDS: Lisinopril 20 MG TAB PO SCH (08:26)
[2018-12-04] MEDS: Atorvastatin Calcium 10 MG TAB PO SCH (08:26)
--- NOTE | 2018-12-04 20:12 | PDOC.HOSPP ---
- Subjective Encounter Date: 12/04/18 Encounter Time: 11:30 Subjective: pt up in bed no complains - Objective Vital Signs & Weight: Vital Signs (12 hours) BP 12/04/18 08:26 117/61 Weight Admit Weight 187 lb 12.8 oz Weight 187 lb 12.8 oz I&O: 12/03/18 12/04/18 12/05/18 06:59 06:59 06:59 Intake Total 1520 1920 960 Output Total 1260 Balance 260 1920 960 Result Diagrams: 12/02/18 09:24 12/02/18 09:24 Additional Labs: Accuchecks 12/04/18 12/04/18 12/04/18 16:21 06:03 01:16 POC Glucose 169 H 95 103 Hospitalist ROS - Review of Systems Respiratory: denies: cough, dry, shortness of breath, hemoptysis, SOB with excertion, pleuritic pain, sputum, wheezing, other Cardiovascular: denies: chest pain, palpitations, orthopnea, paroxysmal noc. dyspnea, edema, light headedness, other Gastrointestinal: denies: nausea, vomiting, abdominal pain, diarrhea, constipation, melena, hematochezia, other - Medication Medications: Active Medications Generic Name Dose Route Start Last Admin Trade Name Freq PRN Reason Stop Dose Admin Hydrocodone Bitart/Acetaminophen 1 tab 11/28/18 07:33 12/04/18 16:10 [place] 5/325 PO 1 tab Q4H PRN Administration Moderate Pain (4-6) Atorvastatin Calcium 10 mg 11/28/18 09:00 12/04/18 08:26 Lipitor PO 10 mg DAILY LIVIA Administration Enoxaparin Sodium 40 mg 12/02/18 09:00 12/04/18 08:25 Lovenox SC 40 mg 0900 LIVIA Administration Levothyroxine Sodium 100 mcg 11/28/18 09:00 12/04/18 08:25 Synthroid PO 100 mcg DAILY LIVIA Administration Lisinopril 20 mg 11/28/18 09:00 12/04/18 08:26 Zestril PO 20 mg DAILY LIVIA Administration Pantoprazole Sodium 40 mg 11/28/18 09:00 12/04/18 08:26 Protonix PO 40 mg DAILY LIVIA Administration Sertraline HCl 150 mg 11/28/18 21:00 12/03/18 21:06 Zoloft PO 150 mg QPM LIVIA Administration Simethicone 80 mg 11/28/18 09:00 12/04/18 16:09 Mylicon Chewable PO 80 mg TID LIVIA Administration Sodium Chloride 10 ml 11/29/18 21:00 12/04/18 08:26 Flush - Normal Saline IVF 10 ml Q12HR LIVIA Administration Sodium Chloride 10 ml 11/29/18 09:06 12/02/18 09:28 Flush - Normal Saline IVF 10 ml PRN PRN Administration Saline Flush Terazosin HCl 5 mg 11/28/18 21:00 12/03/18 21:09 Hytrin PO 5 mg HS LIVIA Administration - Exam Neck: negative: supple, symmetric, no JVD, no thyromegaly, no lymphadenopathy, no carotid bruit, JVD Heart: negative: RRR, no murmur, no gallops, no rubs, normal peripheral pulses, irregular, diminshed peripheral pulses, murmur present, II/IV, III/IV Respiratory: negative: CTAB, no wheezes, no rales, no ronchi, normal chest expansion, no tachypnea, normal percussion, rales, rhonchi, tachypneic, wheezes Hosp A/P (1) Abdominal pain Code(s): R10.9 - UNSPECIFIED ABDOMINAL PAIN Status: Acute (2) Diabetes mellitus type 2 in nonobese Code(s): E11.9 - TYPE 2 DIABETES MELLITUS WITHOUT COMPLICATIONS Status: Chronic (3) Hypertension Code(s): I10 - ESSENTIAL (PRIMARY) HYPERTENSION Status: Chronic (4) Liver masses Code(s): R16.0 - HEPATOMEGALY, NOT ELSEWHERE CLASSIFIED Status: Chronic - Plan pt notified about his pathology finding. will continue current tx. pain medication as needed.
[2018-12-04] MEDS: Terazosin HCl 5 MG CAP PO SCH (23:07)
[2018-12-05] MEDS: Levothyroxine Sodium 100 MCG TAB PO SCH (08:27)
[2018-12-05] MEDS: Lisinopril 20 MG TAB PO SCH (08:27)
[2018-12-05] MEDS: Atorvastatin Calcium 10 MG TAB PO SCH (08:28)
[2018-12-05] MEDS: Enoxaparin Sodium 40 MG/0.4 ML SYRINGE SC SCH (08:28)
[2018-12-05] MEDS: HYDROcodone/Acetaminophen 5/325 mg Tablet PO PRN ×2 (08:29→20:04)
[2018-12-05] MEDS: Simethicone Chewable 80 MG TAB PO SCH ×3 (08:32→20:05)
--- NOTE | 2018-12-05 12:39 | PDOC.HOSPP ---
- Subjective Encounter Date: 12/05/18 Encounter Time: 11:30 Subjective: pt up in bed no complains - Objective Vital Signs & Weight: Vital Signs (12 hours) Temp Pulse Resp BP BP Pulse Ox 12/05/18 08:27 117/61 12/05/18 08:00 97 12/05/18 07:20 98.4 F 95 18 108/70 97 Weight Admit Weight 187 lb 12.8 oz Weight 187 lb 12.8 oz I&O: 12/04/18 12/05/18 12/06/18 06:59 06:59 06:59 Intake Total 1920 1440 360 Balance 1920 1440 360 Result Diagrams: 12/02/18 09:24 12/02/18 09:24 Additional Labs: Accuchecks 12/05/18 12/05/18 12/04/18 11:06 04:59 20:47 POC Glucose 97 95 157 H 12/04/18 12/04/18 16:21 11:29 POC Glucose 169 H 134 H Hospitalist ROS - Review of Systems Cardiovascular: denies: chest pain, palpitations, orthopnea, paroxysmal noc. dyspnea, edema, light headedness, other Gastrointestinal: denies: nausea, vomiting, abdominal pain, diarrhea, constipation, melena, hematochezia, other Genitourinary: denies: dysuria, frequency, incontinence, hematuria, retention, other - Medication Medications: Active Medications Generic Name Dose Route Start Last Admin Trade Name Freq PRN Reason Stop Dose Admin Hydrocodone Bitart/Acetaminophen 1 tab 11/28/18 07:33 12/05/18 08:29 [place] 5/325 PO 1 tab Q4H PRN Administration Moderate Pain (4-6) Atorvastatin Calcium 10 mg 11/28/18 09:00 12/05/18 08:28 Lipitor PO 10 mg DAILY LIVIA Administration Enoxaparin Sodium 40 mg 12/02/18 09:00 12/05/18 08:28 Lovenox SC 40 mg 0900 LIVIA Administration Levothyroxine Sodium 100 mcg 11/28/18 09:00 12/05/18 08:27 Synthroid PO 100 mcg DAILY LIVIA Administration Lisinopril 20 mg 11/28/18 09:00 12/05/18 08:27 Zestril PO 20 mg DAILY LIVIA Administration Pantoprazole Sodium 40 mg 11/28/18 09:00 12/05/18 08:27 Protonix PO 40 mg DAILY LIVIA Administration Sertraline HCl 150 mg 11/28/18 21:00 12/04/18 22:40 Zoloft PO 150 mg QPM LIVIA Administration Simethicone 80 mg 11/28/18 09:00 12/05/18 08:32 Mylicon Chewable PO 80 mg TID LIVIA Administration Sodium Chloride 10 ml 11/29/18 21:00 12/05/18 08:30 Flush - Normal Saline IVF 10 ml Q12HR LIVIA Administration Sodium Chloride 10 ml 11/29/18 09:06 12/02/18 09:28 Flush - Normal Saline IVF 10 ml PRN PRN Administration Saline Flush Terazosin HCl 5 mg 11/28/18 21:00 12/04/18 23:07 Hytrin PO 5 mg HS LIVIA Administration - Exam Neck: negative: supple, symmetric, no JVD, no thyromegaly, no lymphadenopathy, no carotid bruit, JVD Heart: negative: RRR, no murmur, no gallops, no rubs, normal peripheral pulses, irregular, diminshed peripheral pulses, murmur present, II/IV, III/IV Respiratory: negative: CTAB, no wheezes, no rales, no ronchi, normal chest expansion, no tachypnea, normal percussion, rales, rhonchi, tachypneic, wheezes Hosp A/P (1) Abdominal pain Code(s): R10.9 - UNSPECIFIED ABDOMINAL PAIN Status: Acute (2) Diabetes mellitus type 2 in nonobese Code(s): E11.9 - TYPE 2 DIABETES MELLITUS WITHOUT COMPLICATIONS Status: Chronic (3) Hypertension Code(s): I10 - ESSENTIAL (PRIMARY) HYPERTENSION Status: Chronic (4) Liver masses Code(s): R16.0 - HEPATOMEGALY, NOT ELSEWHERE CLASSIFIED Status: Chronic - Plan pt notified about his pathology finding. will continue current tx. pain medication as needed. 12/05 s/p egd and colonoscopy no bleed. 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 pt updated will wait for oncology recommendation. pt can go back to his facility.
--- NOTE | 2018-12-05 13:16 | PRG ---
DATE OF SERVICE: 12/05/2018 SUBJECTIVE: Mr. Ferreira is without complaints today. He is eating well. He has mild pain in his liver biopsy site. OBJECTIVE: VITAL SIGNS: Temperature is 98, pulse is 85, blood pressure is 117/ 61. ABDOMEN: Nontender. There is no evidence of hematoma or ecchymosis at his biopsy site. Liver biopsy showed adenocarcinoma, colon polyps removed for adenomas. ASSESSMENT AND PLAN: Adenocarcinoma, unknown primary. AFP, CEA, and PSA were all nondiagnostic. We will defer management to Oncology. It is unclear if the patient will stay her for treatment or go to [facility] as he is at [facility]. From a GI standpoint, we will sign off. If I can be of any further assistance, please do not hesitate to re-consult. Job ID: [id number] MTDD
[2018-12-05] MEDS: Terazosin HCl 5 MG CAP PO SCH (20:03)
[2018-12-06] MEDS: HYDROcodone/Acetaminophen 5/325 mg Tablet PO PRN (08:44)
[2018-12-06] MEDS: Simethicone Chewable 80 MG TAB PO SCH ×2 (08:46→15:01)
[2018-12-06] MEDS: Lisinopril 20 MG TAB PO SCH (08:46)
[2018-12-06] MEDS: Enoxaparin Sodium 40 MG/0.4 ML SYRINGE SC SCH (08:47)
[2018-12-06] MEDS: Atorvastatin Calcium 10 MG TAB PO SCH (08:47)
[2018-12-06] MEDS: Levothyroxine Sodium 100 MCG TAB PO SCH (08:47)
[2018-12-06 12:18] VITALS: BP 143/87; TEMP 97.9
[2018-12-06 13:05] LABS: Anion Gap 13 mmol/L (10-20); BUN (Urea Nitrogen) 18 mg/dL (8.4-25.7); Calc. Creatinine Clearance 100 mL/min (70-130); Calcium 8.4 mg/dL (7.8-10.44); Carbon Dioxide 23 mmol/L (23-31); Chloride 106 mmol/L (98-107); Estimated GFR-MDRD 84; Glucose 126 mg/dL (80-115); Potassium 4.4 mmol/L (3.5-5.1); Sodium 138 mmol/L (136-145)
--- NOTE | 2018-12-07 15:07 | DIS ---
DATE OF ADMISSION: 11/28/2018 DATE OF DISCHARGE: 12/06/2018 DISCHARGE DIAGNOSES: As of the followin. Abdominal pain. 2. Diabetes. 3. Newly diagnosed cholangiocarcinoma. 4. Hypertension. 5. Liver masses. HOSPITAL COURSE: The patient is a 63-year-old inmate, who initially presented to the hospital on 11/28 with complaints of abdominal pain. The patient did have a CT abdomen and pelvis and chest CTA. He was found to have metastatic lesions to his liver. He has recently had a significant weight loss and he does have a history of prostate cancer and also has a history of renal cell cancer. The patient was seen by GI and underwent a liver biopsy, which the pathology indicated adenocarcinoma moderately differentiated, compatible with the originates from pancreatobiliary tract with cholangiocarcinoma favored. The patient was notified about these findings. He did have a CTA chest, which stated diffuse liver metastatic disease and it was not great evaluation for pulmonary embolism. However, no large central embolism was noted. The patient was able to tolerate food without any abnormalities. He did have EGD and colonoscopy, which was normal. Normal EGD had 4 mm ascending colonic polyp and 6 mm transverse colonic polyp. He had diverticulosis and some moderate radiation proctitis. No malignancy was seen on the EGD and colonoscopy. HOME MEDICATIONS: Home medications will be as of the followin. Zoloft 150 mg q.p.m. 2. Omeprazole 40 mg daily. 3. Metformin 1000 mg b.i.d. 4. Cymbalta 80 mg t.i.d. 5. Zestril 20 mg daily. 6. Levothyroxine 100 mcg daily. 7. Atorvastatin 40 mg daily. 8. Terazosin 5 mg daily. PHYSICAL EXAMINATION: VITAL SIGNS: Temperature 97.9, 93, 18, 98% on room air, and 143/87. GENERAL: He is awake, alert, and oriented x3. Does not appear in distress. CV: S1, S2 present. No murmurs, rubs, gallops. ABDOMEN: Soft and nontender. Bowel sounds are present x2. Again, he will be discharged back to his snf cell. I have recommended that he needs to follow up with his oncologist for treatment plan. Based off our Oncology, he stated that they do not normally treat inmates and I have notified the patient that he will have to follow up with [facility] Oncology. Job ID: [id number]
== END 2018-12-06 15:05 | disposition short-term general hospital (02) | DRG 436 ==
LOC: ERS 22:45 → EEVIPCON 11-28 03:28 → 2NO 11-28 03:28 → T4-B 12-03 14:57
PROVIDERS: ADMIT Hospitalist; ATTEND Hospitalist
PROC: 3E0234Z Introduction of Serum, Toxoid and Vaccine into Muscle, Percutaneous Approach (ICD-10-PCS; 2018-11-28)
PROC: 3E02340 Introduction of Influenza Vaccine into Muscle, Percutaneous Approach (ICD-10-PCS; 2018-11-28)
PROC: 0DJ08ZZ Inspection of Upper Intestinal Tract, Via Natural or Artificial Opening Endoscopic (ICD-10-PCS; 2018-11-30)
PROC: 0DBK8ZX Excision of Ascending Colon, Via Natural or Artificial Opening Endoscopic, Diagnostic (ICD-10-PCS; 2018-11-30)
PROC: 0DBL8ZX Excision of Transverse Colon, Via Natural or Artificial Opening Endoscopic, Diagnostic (ICD-10-PCS; 2018-11-30)
PROC: 0FB23ZX Excision of Left Lobe Liver, Percutaneous Approach, Diagnostic (ICD-10-PCS; principal; 2018-12-01)
DX: C78.7 Secondary malignant neoplasm of liver and intrahepatic bile duct (principal); E44.1 Mild protein-calorie malnutrition; D12.3 Benign neoplasm of transverse colon; D12.2 Benign neoplasm of ascending colon; E11.9 Type 2 diabetes mellitus without complications; I10 Essential (primary) hypertension; E78.5 Hyperlipidemia, unspecified; E78.00 Pure hypercholesterolemia, unspecified; Z23 Encounter for immunization; C80.1 Malignant (primary) neoplasm, unspecified; D63.0 Anemia in neoplastic disease; K57.30 Diverticulosis of large intestine without perforation or abscess without bleeding; K62.7 Radiation proctitis; E03.9 Hypothyroidism, unspecified; Z79.899 Other long term (current) drug therapy; Z79.84 Long term (current) use of oral hypoglycemic drugs; Z87.891 Personal history of nicotine dependence; Z68.29 Body mass index [BMI] 29.0-29.9, adult; Z85.46 Personal history of malignant neoplasm of prostate
CPT/HCPCS: 36415; 36416; 47000; 71275; 77012; 80048; 80074; 82105; 82378; 85025; 85610; 85730; 88305; 88307; 88333; 88334; 88341; 88342; 90471; 90670; 90686; 99285; G0008; G0009; G0103; J1650; J2250; J2270; J2704; J3010; Q9967